=== PATIENT | female | born 1975 | race African-American/Black ===

== ENCOUNTER 2017-07-01 13:21 | Emergency (ER) | payer OTHER ==
[~2017-07-01] VITALS: Ht 167.6 cm; Wt 96.0 kg
[2017-07-01 14:43] VITALS: BP 132/81
[2017-07-01] MEDS ORDERED: IBUPROFEN 800MG TABLET PO ONE (15:00)
[2017-07-01] MEDS ORDERED: DIAZEPAM 2 MG TABLET PO ONE (15:00)
== END 2017-07-01 15:46 | disposition home or self-care (01) ==
LOC: ER 15:12
DX: S16.1XXA Strain of muscle, fascia and tendon at neck level, initial encounter (principal); M54.5 Low back pain; M54.6 Pain in thoracic spine; M25.512 Pain in left shoulder; M25.511 Pain in right shoulder; V43.52XA Car driver injured in collision with other type car in traffic accident, initial encounter; Y93.89 Activity, other specified; Y92.411 Interstate highway as the place of occurrence of the external cause; F11.10 Opioid abuse, uncomplicated; Z88.0 Allergy status to penicillin
CPT/HCPCS: 81025; 99283